=== PATIENT | female | born 1965 | race Caucasian/White ===

== ENCOUNTER 2023-09-08 03:13 | Emergency (ER) | payer OTHER ==
--- NOTE | 2023-09-08 03:42 | ERPHSYRPT ---
- History of Present Illness Time Seen by Provider: 09/08/23 03:32 Source: patient Exam Limitations: no limitations Physician History: Pt had a colostomy 6 days ago at [facility] for colon cancer and was released from the hospital yesterday but was given no supplies and the colostomy bag that was applied at the hospital had no adhesive and therefore was leaking. Pt came to ER for colostomy bag change. Pt denies abdominal pain, chest pain, shortness of air, fever, cough, dysuria, headache. Allergies/Adverse Reactions: codeine Allergy (Intermediate, Verified 09/08/23 03:21) Vomiting morphine Adverse Reaction (Intermediate, Verified 09/08/23 03:21) Vomiting - Review of Systems Constitutional: No Fever Respiratory: No Cough, No Dyspnea Cardiac: No Chest Pain Abdominal/Gastrointestinal: No Abdominal Pain, No Nausea, No Vomiting Genitourinary Symptoms: No Dysuria Skin: No Rash Neurological: No Headache - Physical Exam General Appearance: alert Eye Exam: PERRL/EOMI Ears, Nose, Throat Exam: TMs normal, pharynx normal Neck Exam: normal inspection Respiratory Exam: lungs clear, airway intact Cardiovascular Exam: normal heart sounds Gastrointestinal/Abdomen Exam: normal bowel sounds, other (ostomy over epigastric area without erythema; midline vertical abdominal incision healing well.), No tenderness Neurologic Exam: alert, cooperative Skin Exam: warm, dry - Progress Progress: improved Progress Note: 09/08/23 03:52 ER Nurses changed colostomy bag. Counseled pt/family regarding: need for follow-up - Departure Departure Disposition: Home Clinical Impression: colostomy bag leakage, S/P colostomy day 6 Condition: Stable Critical Care Time: No Referrals: MIGUEL CARDOZA [Primary Care Provider] - Follow up/PCP as directed Instructions: Living with a colostomy Additional Instructions: Follow up with Dr Bah today.
[2023-09-08 04:16] VITALS: RESP 16; TEMP 98.4
[2023-09-08 04:33] VITALS: BP 133/76; PULSE 81; O2SAT 97
== END 2023-09-08 04:28 | disposition home or self-care (01) ==
LOC: ED 03:13
DX: K94.09 Other complications of colostomy (principal)
CPT/HCPCS: 99281

== ENCOUNTER 2023-09-10 00:51 | Emergency (ER) | payer OTHER ==
[2023-09-10 01:02] VITALS: PULSE 88; RESP 18; TEMP 97.5; O2SAT 98
--- NOTE | 2023-09-10 01:34 | ERPHSYRPT ---
- History of Present Illness Time Seen by Provider: 09/10/23 01:15 Source: patient Exam Limitations: no limitations Patient Subjective Stated Complaint: colostomy bag leaking and I need help with it Triage Nursing Assessment: pt ambulated into ER without diff. Pt c/o colostomy bag leaking into her incision and she can't get it to stay on. Pt had colon resection with colostomy on 09/02/23 and was not given any education except a video to watch. Pt's colostomy is leaking out the pt's right side underneath the stoma instead of out of the center of the stoma. The drainage is leaking down onto her incision and skin. Pt's stoma is dark colored and swollen, sutures noted around stoma. Pt's abd skin is red and irritated from the stool. Pt states, "it's been leaking like this ever since it was done and they couldn't get it to stop after surgery, so how do they expect me to be able to do this on my own"? The abd incision is 16cm in length, well approx with chau. Physician History: 57-year-old female presents to our ED for evaluation of a leaking ostomy site. Patient was recently diagnosed with colon cancer. Patient had a bowel resection September 02. Since then patient states that her ostomy has been leaking. Patient concerned as the ostomy is leaking onto her incision site. She has no other complaints. No abdominal pain no nausea or vomiting. Patient does not have supplies at home for ostomy care. Patient has no other complaints or concerns at this time. Portions of this note were created with voice recognition technology. There may be grammatical, spelling, punctuation or sound alike errors Timing/Duration: today Severity: moderate Modifying Factors: Improves With: nothing Associated Symptoms: denies symptoms Allergies/Adverse Reactions: codeine Allergy (Intermediate, Verified 09/10/23 01:26) Vomiting morphine Adverse Reaction (Intermediate, Verified 09/10/23 01:26) Vomiting Home Medications: Ibuprofen [Ibu] 800 mg PO Q8HPRN PRN 09/08/23 [History] Metoprolol Tartrate 25 mg [Lopressor 25MG Tab] 25 mg PO BID 09/08/23 [History] Hx Tetanus, Diphtheria Vaccination/Date Given: Yes Hx Influenza Vaccination/Date Given: No Hx Pneumococcal Vaccination/Date Given: No Travel Risk - International Travel Have you traveled outside of the country in past 3 weeks: No - Coronavirus Screening Are you exhibiting any of the following symptoms?: No Close contact with a COVID-19 positive Pt in past 14-21 Days: No - Vaccine Status Have you recieved a Covid-19 vaccination: No - Review of Systems Constitutional: No Symptoms, No Fever, No Chills Eyes: No Symptoms Ears, Nose, & Throat: No Symptoms Respiratory: No Symptoms, No Cough, No Dyspnea Cardiac: No Symptoms, No Chest Pain, No Edema, No Syncope Abdominal/Gastrointestinal: No Symptoms, No Abdominal Pain, No Nausea, No Vomiting, No Diarrhea Genitourinary Symptoms: No Symptoms, No Dysuria Musculoskeletal: No Symptoms, No Back Pain, No Neck Pain Skin: No Symptoms, No Rash Neurological: No Symptoms, No Dizziness, No Focal Weakness, No Sensory Changes Psychological: No Symptoms Endocrine: No Symptoms Hematologic/Lymphatic: No Symptoms Immunological/Allergic: No Symptoms All Other Systems: Reviewed and Negative - Past Medical History Pertinent Past Medical History: Yes Neurological History: No Pertinent History ENT History: No Pertinent History Cardiac History: Hypertension Respiratory History: No Pertinent History Endocrine Medical History: No Pertinent History Musculoskeletal History: No Pertinent History GI Medical History: Colorectal Cancer, GERD History: No Pertinent History Psycho-Social History: No Pertinent History Female Reproductive Disorders: No Pertinent History Other Medical History: colon ca - Past Surgical History Past Surgical History: Yes Gastrointestinal: Colon Resection Female Surgical History: Tubal Ligation Other Surgical History: colon resection with colostomy on 09/02/23 - Social History Smoking Status: Current every day smoker How long have you smoked: 35 yrs Exposure to second hand smoke: Yes Drug Use: none Patient Lives Alone: No - Nursing Vital Signs Nursing Vital Signs: Initial Vital Signs Temperature 97.5 F 09/10/23 01:01 Pulse Rate 88 09/10/23 01:01 Respiratory Rate 18 09/10/23 01:01 Blood Pressure 140/90 09/10/23 01:01 O2 Sat by Pulse Oximetry 98 09/10/23 01:01 Pain Scale Pain Intensity 0 - Physical Exam General Appearance: no apparent distress, alert Eye Exam: PERRL/EOMI, eyes nml inspection Ears, Nose, Throat Exam: moist mucous membranes Neck Exam: normal inspection, full range of motion Respiratory Exam: normal breath sounds, airway intact, No respiratory distress Gastrointestinal/Abdomen Exam: soft, normal bowel sounds, other (Stoma intact.), No tenderness, No mass Back Exam: normal inspection, normal range of motion, No CVA tenderness, No vertebral tenderness Extremity Exam: normal inspection, normal range of motion, pelvis stable Neurologic Exam: alert, oriented x 3, cooperative, normal mood/affect, No motor deficits Skin Exam: normal color, warm, dry, No rash Lymphatic Exam: No adenopathy SpO2 Interpretation: normal SpO2: 98 O2 Delivery: Room Air - Course Nursing assessment & vital signs reviewed: Yes - Progress Progress: improved Progress Note: Ostomy bag placed. Supplies given to patient. Patient has no other complaints. She has a follow-up appointment scheduled with her surgeon this week. No indication for further intervention. Will discharge home with adequate supplies until she follows up with their surgeon. Patient voices no other complaints or concerns at this time. Portions of this note were created with voice recognition technology. There may be grammatical, spelling, punctuation or sound alike errors Complexity of problem addressed is low acute uncomplicated Complexity of data reviewed and analyzed is none. Note specialized testing ord ered. Diagnosis made based on history and physical exam Risk of complication and or risk of morbidity/mortality of patient management is low. Patient discharged home with supplies. Plan of care established for shared decision making. No social determinants of health present impede follow-up. Vital stable. Patient voices no other complaints or concerns at this time. Portions of this note were created with voice recognition technology. There may be grammatical, spelling, punctuation or sound alike errors 09/10/23 01:32 09/10/23 01:34 - Departure Departure Disposition: Home Clinical Impression: Encounter for ostomy care education Condition: Stable Critical Care Time: No Referrals: MIGUEL CARDOZA [Primary Care Provider] - Follow up/PCP as directed Additional Instructions: Discharge/Care Plan WELCHCADEN was seen on 09/10/23 in the Emergency Room. The patient was counseled regarding Diagnosis,Lab results, Imaging studies, need for follow up and when to return to the Emergency Room. Prescriptions given: Discharge Note I have spoken with the patient and/or caregivers. I have explained the patient's condition, diagnosis and treatment plan based on the information available to me at this time. I have answered the patient's and/or caregiver's questions and addressed any concerns. The patient and/or caregivers have as good understanding of the patient's diagnosis, condition and treatment plan as can be expected at this point. The vital signs have been stable. The patient's condition is stable and appropriate for discharge from the emergency department. The patient will pursue further outpatient evaluation with the primary care physician or other designated or consulting physician as outlined in the discharge instructions. The patient and/or caregivers are agreeable to this plan of care and follow-up instructions have been explained in detail. The patient and/or caregivers have received these instruction. The patient/and or caregivers are aware that any significant change in condition or worsening of symptoms should prompt an immediate return to this or the closest emergency department or call 911.
[2023-09-10 01:55] VITALS: BP 130/73
== END 2023-09-10 01:50 | disposition home or self-care (01) ==
LOC: ED 00:51
DX: Z43.3 Encounter for attention to colostomy (principal); I10 Essential (primary) hypertension; Z79.899 Other long term (current) drug therapy; Z28.310 Unvaccinated for COVID-19; Z72.0 Tobacco use
CPT/HCPCS: 99281